=== PATIENT | female | born 1955 | race Caucasian/White ===

== ENCOUNTER → 2016-10-26 13:38 | Outpatient (CLI) | payer BC ==
[2010-10-02 07:39] VITALS: BMI 37.3
== END | disposition home or self-care (01) ==
LOC: D.CT 13:38
DX: R59.1 Generalized enlarged lymph nodes (principal)

== ENCOUNTER 2019-05-11 07:50 | Observation (INO) | payer BC ==
[~2019-05-11] VITALS: Ht 172.7 cm; Wt 104.8 kg
[2019-05-11] MEDS ORDERED: PROPRANOLOL HCL20 MG PO (07:58)
[2019-05-11] MEDS ORDERED: SYNTHROID112 MCG PO (07:58)
[2019-05-11] MEDS ORDERED: KLONOPIN0.5 MG PO (07:59)
[2019-05-11] MEDS ORDERED: GEODON40 MG PO (07:59)
[2019-05-11] MEDS ORDERED: BUPROPION XL300 MG PO (07:59)
[2019-05-11] MEDS ORDERED: PROZAC40 MG PO (07:59)
[2019-05-11] MEDS ORDERED: SLOW RELEASE I160 MG PO (08:00)
[2019-05-11] MEDS ORDERED: OMEPRAZOLE20 M1 PO (08:00)
[2019-05-11] MEDS ORDERED: TYLENOL PM1 TAB PO (08:00)
[2019-05-11 08:14] LABS: BASOPHILS 0.2 % (0-2); EOSINOPHILS 0.7 % (0-7); HEMATOCRIT 44.2 % (36.0-48.0); IMMATURE GRANULOCYTES 0.2 % (0-5); MCH 31.4 pg (26.0-34.0); MCHC 33.9 g/dL (31.0-37.0); MCV 92.5 fL (80.0-100.0); MEAN PLATELET VOLUME 10.5 fL (7.4-10.4); MONOCYTES 8.1 % (2-11); NEUTROPHILS 73.8 % (40-80); RBC 4.78 10x6/uL (4.00-5.40); RDW 11.9 % (11.5-14.5); WBC 8.5 10x3/uL (4.8-10.8)
[2019-05-11 08:20] LABS: PLATELET COUNT 281 10x3/uL (130-400)
[2019-05-11 08:26] LABS: CALC OSMOLALITY 283 mosm/kg (275-300); CALCIUM 8.8 mg/dL (8.5-10.1); CARBON DIOXIDE 31.3 mmol/L (21.0-32.0); CHLORIDE - SERUM 105 mmol/L (98-107); CREATININE - SERUM 1.3 mg/dL (0.6-1.3); GLUCOSE 101 mg/dL (74-106); POTASSIUM - SERUM 3.8 mmol/L (3.5-5.1); SODIUM 142 mmol/L (136-145); UREA NITROGEN 15 mg/dL (7-18); eGFR NON AFRICAN AMERICAN 44 mL/min (90-120)
[2019-05-11 08:40] LABS: APTT 30.8 SECONDS (22.8-39.4); INR 0.91 (0.85-1.17); PROTIME 11.8 SECONDS (11.6-15.0)
[2019-05-11 08:43] LABS: ALBUMIN 3.6 g/dL (3.4-5.0); ALKALINE PHOSPHATASE 129 U/L (46-116); ALT (SGPT) 28 U/L (10-68); BILIRUBIN - TOTAL 0.47 mg/dL (0.2-1.3); CKMB 0.8 U/L (0.0-3.6); CREATINE KINASE 78 UL (21-215); PROTEIN - SERUM 7.4 g/dL (6.4-8.2)
[2019-05-11 08:45] LABS: TROPONIN-I < 0.017 ng/mL (0.000-0.060)
[2019-05-11 10:40] VITALS: BP 138/79; BMI 35.2
[2019-05-11 12:37] VITALS: BP 135/56
[2019-05-11 14:25] LABS: CKMB 0.7 U/L (0.0-3.6); CREATINE KINASE 71 UL (21-215); TROPONIN-I < 0.017 ng/mL (0.000-0.060)
[2019-05-11 18:04] VITALS: BP 163/72
--- NOTE | 2019-05-11 18:58 | NUR ---
RECEIVED BEDSIDE REPORT. PATIENT IS ALERT AND ORIENTED, RESTING COMFORTABLY IN BED. RESPIRATIONS ARE EVEN AND UNLABORED. NO S/S OF DISTRESS. NO C/O PAIN. CALL LIGHT WITHIN REACH. WILL CPOC.
[2019-05-11 19:59] LABS: CKMB 0.5 U/L (0.0-3.6); CREATINE KINASE 68 UL (21-215); TROPONIN-I < 0.017 ng/mL (0.000-0.060)
[2019-05-11 20:00] VITALS: BP 134/68
[2019-05-12] VITALS: BP 120/64
[2019-05-12 04:00] VITALS: BP 135/60
[2019-05-12 05:45] LABS: BASOPHILS 0.2 % (0-2); EOSINOPHILS 0.5 % (0-7); HEMATOCRIT 41.1 % (36.0-48.0); HEMOGLOBIN 13.7 g/dL (12-16); IMMATURE GRANULOCYTES 0.3 % (0-5); LYMPHOCYTES 21.2 % (15-50); MCH 31.1 pg (26.0-34.0); MCHC 33.3 g/dL (31.0-37.0); MCV 93.4 fL (80.0-100.0); MEAN PLATELET VOLUME 10.8 fL (7.4-10.4); NEUTROPHILS 70.8 % (40-80); PLATELET COUNT 240 10x3/uL (130-400); WBC 5.7 10x3/uL (4.8-10.8)
[2019-05-12 06:03] LABS: ALBUMIN 3.1 g/dL (3.4-5.0); ANION GAP 7.2 mmol/L (8-16); BILIRUBIN - TOTAL 0.37 mg/dL (0.2-1.3); CALCIUM 8.6 mg/dL (8.5-10.1); CARBON DIOXIDE 32.7 mmol/L (21.0-32.0); POTASSIUM - SERUM 3.9 mmol/L (3.5-5.1); PROTEIN - SERUM 6.5 g/dL (6.4-8.2)
[2019-05-12 06:19] LABS: CREATININE - SERUM 1.2 mg/dL (0.6-1.3)
[2019-05-12 07:29] VITALS: BP 124/55
[2019-05-12 11:34] VITALS: BP 119/57
--- NOTE | 2019-05-12 12:26 | NUR ---
LEAVING FOR STRESS TEST BY W/C. CHARIINTED TO ROOM. CALL LIGHT IN REACH. WILL CONT. PLAN OF CARE.
[2019-05-12 15:05] VITALS: Ht 172.7 cm; Wt 104.8 kg
[2019-05-12 15:16] VITALS: BP 130/80
[2019-05-12] MEDS ORDERED: NORVASC2.5 MG PO (16:10)
--- NOTE | 2019-05-12 17:02 | NUR ---
IV AND TELEMETRY DCD. DC PLANS GIVEN. UNDERSTANDING VOICED. ESCORTED TO CAR BY W/C.
== END 2019-05-12 17:02 ==
LOC: D.ER 07:50 → OBSVTIME 09:39 → D.M2 09:39
PROVIDERS: Family Medicine; ADMIT Family Medicine; ATTEND Family Medicine
DX: I20.0 Unstable angina (principal); K21.9 Gastro-esophageal reflux disease without esophagitis; E03.9 Hypothyroidism, unspecified; F41.8 Other specified anxiety disorders; H54.40 Blindness, one eye, unspecified eye